=== PATIENT | male | born 1995 | race Caucasian/White ===

== ENCOUNTER 2017-08-07 05:37 | Emergency (ER) | payer OTHER ==
[~2017-08-07] VITALS: Ht 188 cm; Wt 90.7 kg
[~2017-08-07 05:37] MED LIST: ALBU18HF2 IH; AZEL23SP BNOSTRILS; FLUT1DIS28 IH
[2017-08-07] MEDS ORDERED: LAMICTAL (05:57)
[2017-08-07] MEDS ORDERED: HALOPERIDOL LACTATE 5 MG/1 ML VIAL IV ONE (06:00)
[2017-08-07] MEDS ORDERED: IV NORMAL SALINE 1000 ML BAG IV ONE (06:00)
[2017-08-07 06:10] LABS: BASOPHILS # (AUTO) 0.1 K/uL (0.0-8.0); BASOPHILS % (AUTO) 0.6 % (0.0-2.0); HEMATOCRIT 43.6 % (36.7-47.1); HEMOGLOBIN 15.4 g/dL (12.5-16.3); LYMPHOCYTES # (AUTO) 1.5 K/uL (20.0-40.0); LYMPHOCYTES % (AUTO) 13.4 % (20.5-51.5); MEAN CORPUSCULAR HEMOGLOBIN 32.5 uug (23.8-33.4); MEAN CORPUSCULAR HGB CONC 35 g/dL (32.5-36.3); MEAN CORPUSCULAR VOLUME 92.1 fL (73.0-96.2); MONOCYTES # (AUTO) 0.5 K/uL (2.0-10.0); MONOCYTES % (AUTO) 4.1 % (0.0-11.0); NEUTROPHILS # (AUTO) 9.2 K/uL (1.8-8.9); NEUTROPHILS % (AUTO) 81.9 % (38.5-71.5); PLATELET COUNT (AUTO) 245 K/uL (152-348); RED BLOOD CELL COUNT(AUTO) 4.74 MIL/uL (4.06-5.63); WHITE BLOOD COUNT (AUTO) 11.2 K/uL (3.6-10.2)
[2017-08-07] MEDS ORDERED: HALOPERIDOL LACTATE 5 MG/1 ML VIAL ONE (06:18)
[2017-08-07 06:27] LABS: BILIRUBIN,DIRECT 0.2 mg/dL (0.0-0.2); BILIRUBIN,TOTAL 2.2 mg/dL (0.2-1.0); CREATININE 1.3 mg/dL (0.6-1.3); POTASSIUM 4.7 mmol/L (3.5-5.1); TOTAL PROTEIN, SERUM 7.6 g/dL (6.4-8.2)
--- NOTE | 2017-08-07 07:05 | NUR ---
PT REC'D MEDS, 1L 0.9NS INFUSING, SBAR REPORT TO AM SHIFT.
--- NOTE | 2017-08-07 07:15 | NUR ---
Recieved Pt in bed, sleepy but easily arouseable. Denies pain, N/V.
--- NOTE | 2017-08-07 08:35 | NUR ---
Pt passed po challange, able to drink w/o feeling of nausea or vomitting.
--- NOTE | 2017-08-07 09:12 | NUR ---
Patient discharged to home in stable conditon. Written and verbal after care instructions given. Patient verbalizes understanding of instructions. pt left Er w/ steady gait accompained by father.
--- NOTE | 2017-08-07 09:12 | NUR ---
IV removed. Catheter intact and site benign. Pressure and 4x4 gauze applied to site. No bleeding noted.
[2017-08-07 09:14] VITALS: BP 119/89
== END 2017-08-07 09:15 | disposition home or self-care (01) ==
LOC: ER 05:39
DX: R11.10 Vomiting, unspecified (principal); T40.7X5A Adverse effect of cannabis (derivatives), initial encounter; F17.200 Nicotine dependence, unspecified, uncomplicated; F12.90 Cannabis use, unspecified, uncomplicated; J45.909 Unspecified asthma, uncomplicated; Y92.89 Other specified places as the place of occurrence of the external cause
CPT/HCPCS: 80048; 80076; 83690; 85025; 85730; 96361; 96374; 99284; A4663; J1630; J7030

== ENCOUNTER 2018-10-05 08:46 | Emergency (ER) | payer BC, OTHER ==
[~2018-10-05] VITALS: Ht 188 cm; Wt 97.5 kg
[~2018-10-05 08:46] MED LIST changes: +LAMICTAL
[2018-10-05] MEDS ORDERED: DULO20CA PO (09:01)
[2018-10-05] MEDS ORDERED: LISD50CA2 PO (09:01)
[2018-10-05] MEDS ORDERED: LORA-259 PO (09:01)
[2018-10-05] MEDS ORDERED: LIDOCAINE HCL 2% 20 ML VIAL TP ONE (09:30)
[2018-10-05] MEDS ORDERED: TDAP DIPH,PERTUSS,TET VAC/PF 0.5 ML DISP.SYRIN IM ONE ×2 (09:30→09:56)
[2018-10-05 10:07] VITALS: BP 129/72
--- NOTE | 2018-10-05 10:07 | NUR ---
pt was evaluated by dr poole. pt was d/c'd to home. d/c instructions given to the pt.
== END 2018-10-05 10:08 | disposition home or self-care (01) ==
LOC: ER 08:46
DX: S51.012A Laceration without foreign body of left elbow, initial encounter (principal); S00.03XA Contusion of scalp, initial encounter; J45.909 Unspecified asthma, uncomplicated; F17.200 Nicotine dependence, unspecified, uncomplicated; F14.10 Cocaine abuse, uncomplicated; Z79.899 Other long term (current) drug therapy; V43.52XA Car driver injured in collision with other type car in traffic accident, initial encounter; Y93.89 Activity, other specified; Y92.410 Unspecified street and highway as the place of occurrence of the external cause; Y99.8 Other external cause status
CPT/HCPCS: 70450; 90715; A4663

== ENCOUNTER 2018-10-19 21:14 | Emergency (ER) | payer BC, OTHER ==
[~2018-10-19] VITALS: Ht 188 cm; Wt 99.8 kg
[~2018-10-19 21:14] MED LIST changes: -ALBU18HF2 IH; -AZEL23SP BNOSTRILS; +DULO20CA PO; -FLUT1DIS28 IH; -LAMICTAL; +LISD50CA2 PO; +LORA-259 PO
[2018-10-19 22:19] VITALS: BP 150/94
--- NOTE | 2018-10-19 22:19 | NUR ---
Sutures removed by . Dry dressing applied. Pt teachalex provided
== END 2018-10-19 22:20 | disposition home or self-care (01) ==
LOC: ER 21:16
DX: S51.012D Laceration without foreign body of left elbow, subsequent encounter (principal); J45.909 Unspecified asthma, uncomplicated; F17.200 Nicotine dependence, unspecified, uncomplicated; F12.10 Cannabis abuse, uncomplicated; Z79.899 Other long term (current) drug therapy; X58.XXXD Exposure to other specified factors, subsequent encounter
CPT/HCPCS: A4217; A4663